=== PATIENT | female | born 1980 ===

== ENCOUNTER 2017-04-08 13:09 | Emergency (ER) | payer OTHER ==
[2017-04-08 13:20] VITALS: BP 97/75
[2017-04-08] MEDS ORDERED: Ibuprofen TAB* 600 MG PO ONE (13:20)
--- NOTE | 2017-04-08 14:41 | UC ---
Throat Pain/Nasal Chago HPI - History of Current Complaint Chief Complaint: UCRespiratory Stated Complaint: THROAT PAIN Time Seen by Provider: 04/08/17 13:42 Hx Obtained From: Patient Hx Last Menstrual Period: 03/16/17 ?: No Onset/Duration: Gradual Onset - started with ST over past 2 days (2 children at home with strep) Severity: Moderate Associated Signs & Symptoms: Positive: Negative - Allergies/Home Medications Allergies/Adverse Reactions: Allergies Allergy/AdvReac Type Severity Reaction Status Date / Time No Known Allergies Allergy Verified 12/17/12 18:17 Home Medications: Home Medications ALPRAZolam TAB* [Xanax TAB*] 0.25 mg PO Q6H PRN 04/08/17 [History Confirmed ] Sertraline HCl [Zoloft] 150 mg PO 04/08/17 [History] PMH/Surg Hx/FS Hx/Imm Hx Previously Healthy: Yes Psychological History: Anxiety, Depression - Surgical History Surgical History: None - Family History Known Family History: Positive: None - Social History Occupation: Unemployed Lives: With Family Alcohol Use: None Substance Use Type: None Smoking Status (MU): Heavy Every Day Tobacco Smoker Type: Cigarettes Review of Systems Constitutional: Negative Skin: Negative ENT: Sore Throat, Ear Ache - ear ache started this am on R Respiratory: Negative Cardiovascular: Negative Neurological: Negative Psychological: Negative All Other Systems Reviewed And Are Negative: Yes Physical Exam Triage Information Reviewed: Yes Appearance: Well-Appearing, No Pain Distress, Well-Nourished Vital Signs: Initial Vital Signs Temp 98.9 F 04/08/17 13:16 Pulse 103 04/08/17 13:16 Resp 18 04/08/17 13:16 BP 97/75 04/08/17 13:16 Pulse Ox 99 04/08/17 13:16 Vital Signs Reviewed: Yes Eyes: Positive: Conjunctiva Clear ENT: Positive: Pharyngeal erythema Neck exam: Normal Respiratory Exam: Normal Cardiovascular Exam: Normal Neurological Exam: Normal Psychological Exam: Normal Skin Exam: Normal Throat Pain/Nasal Course/Dx - Differential Dx/Diagnosis Differential Diagnosis/HQI/PQRI: Otitis Media, Pharyngitis, Tonsillitis, URI Provider Diagnoses: strep throat Discharge - Discharge Plan Condition: Stable Disposition: HOME Prescriptions: Amoxicillin/Clavulanate TAB* [Augmentin TAB 875*] 875 mg PO BID #20 tab Referrals: Jerrod Chavez MD [Primary Care Provider] - 2 Days (if no better ) Additional Instructions: drink plenty of fluids ibuprofen (over the counter) for pain and fever
== END 2017-04-08 15:00 | disposition home or self-care (01) ==
LOC: UCEAST 13:09
DX: Z72.0 Tobacco use (principal); J02.0 Streptococcal pharyngitis
CPT/HCPCS: 87651; 99212; A9270-GY; G0463